=== PATIENT | male | born 1930 | race Two or more races ===

== ENCOUNTER 2019-07-28 17:58 | Inpatient (IN) | payer MEDICARE, OTHER ==
[~2019-07-28] VITALS: Ht 162.6 cm; Wt 67.8 kg
--- NOTE | 2019-07-28 18:01 | NUR ---
AT BEDSIDE FOR EVAL.
--- NOTE | 2019-07-28 18:06 | NUR ---
PT BIB [facility], GLF AT AN INTERSECTION,C/O LEFT HIP PAIN, PT IS AAOX2 LATVI[place] SPEAKING ONLY, NOT IN RESPIRATORY DISTRESS, HOOKED TO MONITOR, KEPT RESTED AND COMFORTABLE, WILL CONTINUE TO MONITOR.
--- NOTE | 2019-07-28 18:15 | NUR ---
IV LINE ESTABLISHED, BLOOD DRAWN AND SENT TO LAB.
--- NOTE | 2019-07-28 18:24 | NUR ---
PT IS WHEELED TO CT SCAN VIA [facility].
[2019-07-28 18:26] LABS: BASOPHILS # (AUTO) 0.1 /CMM (0.0-0.2); BASOPHILS % (AUTO) 0.4 % (0.0-2.0); EOSINOPHILS % (AUTO) 2.5 % (0.0-6.0); HEMATOCRIT 31 % (39-51); LYMPHOCYTES # (AUTO) 1.7 /CMM (0.8-4.8); LYMPHOCYTES % (AUTO) 13.2 % (20.0-44.0); MEAN CORPUSCULAR HGB CONC 33 g/dl (31.0-36.0); MEAN CORPUSCULAR VOLUME 96 fL (80-96); MONOCYTES # (AUTO) 0.8 /CMM (0.1-1.30); MONOCYTES % (AUTO) 6.4 % (2.0-12.0); NEUTROPHILS # (AUTO) 10.3 /CMM (1.8-8.9); NEUTROPHILS % (AUTO) 77.5 % (43.0-81.0); PLATELET COUNT (AUTO) 191 /CMM (150-450); RED BLOOD CELL COUNT(AUTO) 3.18 MIL/uL (4.5-6.0); WHITE BLOOD COUNT (AUTO) 13.2 K/uL (4.3-11.0)
[2019-07-28 18:40] LABS: CALCIUM, SERUM 8.3 mg/dL (8.5-10.1); CARBON DIOXIDE 30 mmol/L (21-32); CHLORIDE 106 mmol/L (98-107); CREATININE 1.1 mg/dL (0.6-1.3); GLUCOSE 122 mg/dL (74-106); SODIUM SERUM 141 mmol/L (136-145); UREA NITROGEN, BLOOD 16 mg/dL (7-18)
--- NOTE | 2019-07-28 19:10 | NUR ---
REPORT GIVEN TO LETHA WEBSTER FOR FARHAD.
--- NOTE | 2019-07-28 19:20 | NUR ---
PAGED ORTHO INDUSTRIAL WELDER DR CASTANEDA. DID NOT ANSWER WILL CALL BACK.
--- NOTE | 2019-07-28 19:25 | NUR ---
CALLED NURSING SUP FOR M/S BED.
--- NOTE | 2019-07-28 19:27 | NUR ---
CALLED [facility].
--- NOTE | 2019-07-28 19:50 | NUR ---
ADMISSION 89 y/o male admitted s/p GLF at an intersection, c/o pain when moving. Daughter Daily assist with translation, patient is [place] Citizen speaking. Skin body assessment done, left knee abrasion. Fall precaution maintained.
--- NOTE | 2019-07-28 19:51 | NUR ---
SECOND ATTEMPT FOR DR LEONEL RAMOS EMPLOYEE PLACEMENT SPECIALIST.
[2019-07-28] MEDS ORDERED: MAGNESIUM HYDROXIDE 30 ML UDC PO PRN (20:00)
[2019-07-28] MEDS ORDERED: MORPHINE SULFATE INJ 2 MG/ML DISP.SYRIN IV PRN (20:00)
[2019-07-28] MEDS ORDERED: MAG HYDROX/AL HYDROX/SIMETH 30 ML UDC PO PRN (20:00)
[2019-07-28] MEDS ORDERED: ONDANSETRON HCL/PF 4 MG/2 ML VIAL IVP PRN (20:00)
[2019-07-28] MEDS ORDERED: ACETAMINOPHEN 325 MG TABLET PO PRN (20:00)
[2019-07-28] MEDS ORDERED: Z GUARD REMEDY 2 OZ OINT TP PRN (20:00)
--- NOTE | 2019-07-28 20:18 | NUR ---
MS 203 GIVEN
--- NOTE | 2019-07-28 20:33 | NUR ---
REPORT GIVEN TO JOSE ROBERTO MONAE
[2019-07-28] MEDS ORDERED: ALPRAZOLAM 0.25 MG TABLET ONE (20:42)
[2019-07-28] MEDS ORDERED: ALPRAZOLAM 0.25 MG TABLET PO ONE (21:00)
[2019-07-28 21:18] VITALS: BP 159/72
[2019-07-28 21:22] VITALS: BP 159/72
--- NOTE | 2019-07-29 06:18 | NUR ---
END OF SHIFT REPORT Patient in bed, A/O x3 forgetful. Tolerating RA, denies shortness of breath. Limited movement in left hip due to pain, supported with pillows when repositioned. Left hip pain managed with PRN Tylenol. Afebrile overnight. Plan Ortho consult. Left knee abrasion, mepilex foam in place, wound care consult to follow. Fall precaution maintained.
--- NOTE | 2019-07-29 07:09 | NUR ---
MS RN OPENING NOTES RECEIVED PT AWAKE IN BED IN NO ACUTE SIGNS OF DISTRESS. A/O X3. UKRAINIAN SPEAKING, DENIES PAIN OR ANY DISCOMFORTS AT THIS TIME. ON ROOM AIR, BREATHING EVEN AND UNLABORED. IV SL ON RAC G#18 INTACT AND PATENT. FALL AND SAFETY MEASURES IN PLACE: BED IN LOWEST LOCKED POSITION WITH SIDE-RAILS UP X2. CALL LIGHT WITHIN REACH. WILL CONTINUE TO MONITOR PT ACCORDINGLY.
[2019-07-29 07:15] LABS: BASOPHILS % (AUTO) 0.7 % (0.0-2.0); EOSINOPHILS % (AUTO) 1.8 % (0.0-6.0); HEMATOCRIT 26 % (39-51); HEMOGLOBIN 8.7 g/dL (13.5-17.5); LYMPHOCYTES # (AUTO) 1.6 /CMM (0.8-4.8); LYMPHOCYTES % (AUTO) 23.1 % (20.0-44.0); MEAN CORPUSCULAR HGB CONC 34 g/dl (31.0-36.0); MEAN CORPUSCULAR VOLUME 95 fL (80-96); MONOCYTES # (AUTO) 0.6 /CMM (0.1-1.30); MONOCYTES % (AUTO) 8.9 % (2.0-12.0); NEUTROPHILS # (AUTO) 4.5 /CMM (1.8-8.9); NEUTROPHILS % (AUTO) 65.5 % (43.0-81.0); PLATELET COUNT (AUTO) 145 /CMM (150-450); RED BLOOD CELL COUNT(AUTO) 2.68 MIL/uL (4.5-6.0); WHITE BLOOD COUNT (AUTO) 6.8 K/uL (4.3-11.0)
[2019-07-29 08:00] VITALS: BP 158/63
[2019-07-29 08:21] LABS: CALCIUM, SERUM 7.8 mg/dL (8.5-10.1); MAGNESIUM 1.8 mg/dL (1.8-2.4); POTASSIUM 4.1 mmol/L (3.5-5.1)
[2019-07-29] MEDS: HYDROCODONE/APAP 5/325MG 1 EACH TABLET PO PRN ×2 (11:39→22:25)
--- NOTE | 2019-07-29 13:46 | NUR ---
RN NOTES LEFT MESSAGE TO DR YEUNG REGARDING ORTHO CONSULT FOR PT. HE REPLY BACK THAT HE WILL COME AND SEE PT TODAY.
--- NOTE | 2019-07-29 14:56 | NUR ---
RN NOTES PT SEEN AND EVALUATED BY DR YEUNG AND ORDERED NO IMMEDIATE SURGICAL INTERVENTION AT THIS TIME. HE ORDERED WEIGHT BEARING STATUS OF PARTIAL WEIGHT BEARING TO LLE. NO ACTIVE ABDUCTION OF LLE. WILL CONTINUE TO MONITOR PT.
[2019-07-29] MEDS ORDERED: MECL-159 PO (15:47)
[2019-07-29] MEDS ORDERED: SITA1TAB2 PO (15:47)
[2019-07-29] MEDS ORDERED: IBUP-1953 PO (15:47)
[2019-07-29] MEDS ORDERED: DILT120C51 PO (15:47)
[2019-07-29] MEDS ORDERED: CITA20TA16 PO (15:47)
[2019-07-29] MEDS ORDERED: TAMS-12 PO (15:47)
[2019-07-29 16:00] VITALS: BP 162/61
[2019-07-29] MEDS: AMLODIPINE BESYLATE 5 MG TABLET PO SCH (16:03)
--- NOTE | 2019-07-29 16:11 | NUR ---
RN NOTES PT NOTED WITH BP OF 162/[address] CORCORAN MADE AWARE WITH ORDER TO GIVE NORVASC 10MG NOW AND DAILY. WILL CONTINUE TO MONITOR.
--- NOTE | 2019-07-29 18:41 | NUR ---
RN NOTES URINE SPECIMEN FOR URINALYSIS COLLECTED. CALLED LAB AND SPOKE TO ROD TO PICK-UP SPECIMEN.
--- NOTE | 2019-07-29 18:43 | NUR ---
MS RN OPENING NOTES PT IN BED AWAKE AND LYING AT MODERATE HIGH BACKREST POSITION. A/O X3. WOLOF SPEAKING.LATEST BP TAKEN JUST NOW, 139/60MMHG. ON ROOM AIR, TOLERATING WELL WITH NO SOB NOTED THROUGHOUT THE DAY. IV SL ON RAC G#18 INTACT, PATENT AND FLUSHES WELL. ALL NEEDS AND CARE PROVIDED WELL. FALL AND SAFETY MEASURES KEPT IN PLACE: BED IN LOWEST LOCKED POSITION WITH SIDE-RAILS UP X2. CALL LIGHT WITHIN REACH. WILL ENDORSE TO CLEANING ASSOCIATE NURSE FOR FARHAD.
--- NOTE | 2019-07-29 19:10 | NUR ---
RN NOTES/ASSESSMENT: RECEIVED REPORT FROM RADHA MONAE. PT IN BED, SLEEPING, APPEARS CALM AND COMFORTABLE. MET WITH PT'S DAUGHTER, JOSEPH WHO WERE AT BED SIDE. RESPIRATIONS EVEN AND UNLABORED. PT SEEN BY GAMAL TODAY (ORTHO), NO SURGICAL INTERVENTION NEEDED, BUT WITH ORDERS FOR PARTIAL WEIGHT BEARING ONLY ON LLE, AND NO FURTHER MOVEMENT/ABDUCTION ON LEFT HIP TOP PREVENT FURTHER DISPLACEMENT. PT RAFFAELE/FARIBA? WILL SEE THE PT AT 0900AM TOMORROW. URINAL WITHIN REACH. IV ACCESS PATENT AND FLUSHING WELL, ON HL. SAFETY PRECAUTIONS FOR FALL INITIATED, CALL LIGHT IN REACH, WILL CONTINUE MONITORING PT.
[2019-07-29 19:56] LABS: APPEARANCE,URINE SL CLOUDY (CLEAR); BILIRUBIN,URINE NEGATIVE (NEGATIVE); BLOOD, URINE NEGATIVE Ery/uL (NEGATIVE); COLOR,URINE YELLOW (YELLOW); KETONES,URINE NEGATIVE (NEGATIVE); LEUKOCYTE ESTERASE ,URINE MODERATE (NEGATIVE); NITRITE, URINE NEGATIVE (NEGATIVE); PROTEIN,URINE NEGATIVE (NEGATIVE); UGLUCOSE NEGATIVE (NEGATIVE)
[2019-07-29 20:00] VITALS: BP 145/75
[2019-07-29 20:22] VITALS: BP 145/75
[2019-07-29 20:37] LABS: BACTERIA,URINE Few /HPF (None Seen); RBC,URINE 0-2 /HPF (0-2); SQUAMOUS EPITHELIAL CELL,UR Few /HPF (None Seen); WBC,URINE 21-50 /HPF (0-3)
--- NOTE | 2019-07-29 22:25 | NUR ---
RN NOTES/PRN NORCO: CONTACTED PT'S DAUGHTER, SPOKED WITH JOSEPH, PT POINTING ON HIS LEFT HIP AREA, PER TRANSLATION OF PT'S DAUGHTER, PT C/O PAIN ON HIP 02/24, PER DAUGHTER TO PLEASE GIVE PAIN MEDICATION TO MAKE HIS FATHER COMFORTABLE. PRN NORCO 5/325 MG TAB PO ADMINISTERED TO PT AT THIS TIME, WILL CONTINUE TO MONITOR AND REASSESS PT.
[2019-07-30] MEDS: HYDROCODONE/APAP 5/325MG 1 EACH TABLET PO PRN ×2 (03:34→16:29)
--- NOTE | 2019-07-30 03:35 | NUR ---
rn notes/prn norco: translated by pt's daughter jeremiah, pt pointing onto his left hip, rubbing site, appears to be not comfortable, per pt's daughter pt is in pain, requesting for pain medication, ps 01/25, prn norco 5/325 mg tab po administered to pt at this time.
[2019-07-30 06:22] LABS: BASOPHILS % (AUTO) 0.5 % (0.0-2.0); EOSINOPHILS % (AUTO) 3.7 % (0.0-6.0); HEMATOCRIT 24 % (39-51); HEMOGLOBIN 8.2 g/dL (13.5-17.5); LYMPHOCYTES # (AUTO) 1.2 /CMM (0.8-4.8); LYMPHOCYTES % (AUTO) 17.1 % (20.0-44.0); MEAN CORPUSCULAR HGB CONC 34 g/dl (31.0-36.0); MEAN CORPUSCULAR VOLUME 95 fL (80-96); MONOCYTES # (AUTO) 0.6 /CMM (0.1-1.30); MONOCYTES % (AUTO) 8.2 % (2.0-12.0); NEUTROPHILS # (AUTO) 5.1 /CMM (1.8-8.9); NEUTROPHILS % (AUTO) 70.5 % (43.0-81.0); PLATELET COUNT (AUTO) 143 /CMM (150-450); RED BLOOD CELL COUNT(AUTO) 2.53 MIL/uL (4.5-6.0); WHITE BLOOD COUNT (AUTO) 7.2 K/uL (4.3-11.0)
[2019-07-30 06:44] LABS: CALCIUM, SERUM 7.7 mg/dL (8.5-10.1); CREATININE 1.1 mg/dL (0.6-1.3); MAGNESIUM 1.8 mg/dL (1.8-2.4); PHOSPHORUS 3.4 mg/dL (2.5-4.9); POTASSIUM 4.3 mmol/L (3.5-5.1)
--- NOTE | 2019-07-30 06:44 | NUR ---
RN CLOSING NOTES: PT RESTING, APPEARS CALM AND COMFORTABLE. PRN NORCO ADMINISTERED FOR C/O LEFT HIP PAIN. IV ACCESS REMAINS PATENT AND FLUSHING WELL, ON HL. NO S/S OF IV INFILTRATION NOTED. FOR PT EVAL TODAY. VS REMAINS STABLE, NEEDS ATTENDED. URINAL WITHIN REACH. SAFETY PRECAUTIONS FOR FALL REMAINS ENGAGED, CALL LIGHT IN REACH, WILL ENDORSE TO DAY RN FOR CONTINUITY OF CARE.
--- NOTE | 2019-07-30 07:30 | NUR ---
MS2/RN OPENING NOTES RECEIVED PATIENT IN BED SLEEPING COMFORTABLY. EASILY AROUSABLE. NO PAIN OR ACUTE DISTRESS AT THIS TIME. RESPIRATION EVEN AND UNLABORED. SKIN IS DRY WARM TO TOUCH. PATIENT IS ALERT AND ORIENTED X3, [place] SPEAKING. ABLE TO MAKE NEEDS KNOWN. NOTED WITH IV ACCESS ON RAC. INTACT AND PATENT FLUSHING WELL. ALL NEEDS ANTICIPATED. CALL LIGHT WITHIN REACHED. BED LOCKED AND IN LOWEST POSITION. PLAN OF CARE DISCUSSED WITH PATIENT. WILL CONTINUE TO MONITOR CLOSELY.
[2019-07-30 08:00] VITALS: BP 127/57
[2019-07-30] MEDS: AMLODIPINE BESYLATE 5 MG TABLET PO SCH (08:10)
--- NOTE | 2019-07-30 09:51 | NUR ---
WOUND CARE CONSULT: PT PRESENTS WITH LEFT KNEE ABRASION, PRESENT ON ADMISSION. RECOMMENDATIONS MADE FOR SKIN PROTECTION AND WOUND CARE. DISCUSSED WITH NURSING STAFF. PT IS CONTINENT AT THIS TIME. WILL SEE PRN. RIOS IN AGREEMENT WITH PLAN OF CARE. Addendum: 07/30/19 at 0952 by OCHOA HENLEY WNDNU Amended: Links added.
[2019-07-30] MEDS: CEFTRIAXONE 1 G in IV D5W 50 ML IV SCH (14:00)
[2019-07-30 16:00] VITALS: BP 118/55
[2019-07-30] MEDS: TAMSULOSIN 0.4 MG CAP.SR.24H PO SCH (16:29)
[2019-07-30] MEDS: METFORMIN 500 MG TABLET PO SCH (16:29)
--- NOTE | 2019-07-30 18:51 | NUR ---
MS2/RN CLOSING NOTES PATIENT CONTINUES TO REMAIN IN STABLE CONDITION THROUGHOUT THE SHIFT. PROVIDED COMFORT AND SAFETY. ABLE TO MAKE NEEDS KNOWN. NOTED WITH IV ACCESS ON RFA #24G. INTACT AND PATENT FLUSHING WELL. LEFT A MESSAGE WITH MADISON YEUNG AND DR. CORCORAN REGARDING DAUGHTER WANTING TO TALK TO THEM REGARDING THE PATIENT. PATIENT WAS ALSO SEEN BY PT AND WAS ABLE TO WALK WITH A WALKER WITH ASSISTANCE. ALL NEEDS ANTICIPATED. CALL LIGHT WITHIN REACHED. BED LOCKED AND IN LOWEST POSITION. PLAN OF CARE DISCUSSED WITH PATIENT. WILL CONTINUE TO MONITOR CLOSELY. ENDORSED TO PM NURSE FOR FARHAD.
--- NOTE | 2019-07-30 19:36 | NUR ---
MS RN RECEIVE PT SITTING IN THE CHAIR. DAUGTHER AT BEDSIDE, A/O X 3, FORGETFUL AT TIMES. L HIP FX. PARTIAL WEIGHT BEARING LLE, STABLE AND NOT IN DISTRESS, SAFETY MEASURES AT ALL TIMES. WILL CONT TO MONITOR
[2019-07-30 20:00] VITALS: BP_SYST 100; BP_DIAS 44; BP_DIAS 94
--- NOTE | 2019-07-31 06:13 | NUR ---
MS RN PT ASLEEP AND EASILY AWAKEN, REMAINS COMFORTABLE AND NOT IN DISTRESS, RESPIRATIONS EVEN AND UNLABORED. MONITORED FOR PAIN NO C/O PAIN AT THIS TIME. MAINTAINS PARTIAL WT BEARING L HIP. NO ACTIVE L HIP ABDUCTION. NEEDS ATTENDED AND ANTICIPATED, KEPT CLEAN, DRY AND COMFORTABLE AT ALL TIMES. ASSISTED REPOSITION EVERY 2 HOURS. GOOD SKIN CARE PROVIDED. SAFETY MEASURES AT ALL TIMES. WILL ENDORSE TO NEXT SHIFT POC.
[2019-07-31 06:44] LABS: BASOPHILS % (AUTO) 0.6 % (0.0-2.0); EOSINOPHILS % (AUTO) 1.8 % (0.0-6.0); HEMATOCRIT 26 % (39-51); HEMOGLOBIN 8.9 g/dL (13.5-17.5); LYMPHOCYTES # (AUTO) 1.2 /CMM (0.8-4.8); LYMPHOCYTES % (AUTO) 15.6 % (20.0-44.0); MEAN CORPUSCULAR HGB CONC 34 g/dl (31.0-36.0); MEAN CORPUSCULAR VOLUME 96 fL (80-96); MONOCYTES # (AUTO) 0.8 /CMM (0.1-1.30); MONOCYTES % (AUTO) 9.7 % (2.0-12.0); NEUTROPHILS # (AUTO) 5.6 /CMM (1.8-8.9); NEUTROPHILS % (AUTO) 72.3 % (43.0-81.0); PLATELET COUNT (AUTO) 155 /CMM (150-450); RED BLOOD CELL COUNT(AUTO) 2.76 MIL/uL (4.5-6.0); WHITE BLOOD COUNT (AUTO) 7.7 K/uL (4.3-11.0)
[2019-07-31 06:50] LABS: CALCIUM, SERUM 8.2 mg/dL (8.5-10.1); CREATININE 1.1 mg/dL (0.6-1.3); MAGNESIUM 2.1 mg/dL (1.8-2.4); PHOSPHORUS 3.5 mg/dL (2.5-4.9); POTASSIUM 4.7 mmol/L (3.5-5.1)
[2019-07-31 07:52] VITALS: BP 139/49
[2019-07-31 08:00] VITALS: BP 139/49
[2019-07-31] MEDS: TAMSULOSIN 0.4 MG CAP.SR.24H PO SCH ×2 (08:13→16:38)
[2019-07-31] MEDS: METFORMIN 500 MG TABLET PO SCH ×2 (08:13→16:38)
[2019-07-31] MEDS: AMLODIPINE BESYLATE 5 MG TABLET PO SCH (08:14)
[2019-07-31] MEDS ORDERED: DILTIAZEM HCL CD 120 MG PO SCH (09:00)
[2019-07-31] MEDS ORDERED: CITALOPRAM HYDROBROMIDE 20 MG TABLET PO SCH (09:00)
[2019-07-31] MEDS ORDERED: LINAGLIPTIN 5 MG TABLET PO SCH (09:00)
[2019-07-31] MEDS ORDERED: SITAGLIPTIN PHOSPHATE 50 MG TABLET PO SCH (09:00)
[2019-07-31] MEDS ORDERED: CEFT1FRO2 IV (12:48)
[2019-07-31] MEDS ORDERED: HYDR-3972 PO (12:48)
[2019-07-31] MEDS ORDERED: POLY17PO4 PO (12:48)
[2019-07-31] MEDS ORDERED: METF-440 PO (12:48)
[2019-07-31] MEDS: CEFTRIAXONE 1 G in IV D5W 50 ML IV SCH (13:13)
[2019-07-31 16:00] VITALS: BP 122/76
--- NOTE | 2019-07-31 18:56 | NUR ---
MS RN END OF SHIFT SUMMARY Pt is a/o x2-3, afebrile. Respirations are even and unlabored, not in any acute distress noted. Pt denies any pain throughout shift, no c/o sob n/v. pupils are reactive to light. Abdomen is soft and nondistended, bowel sounds are present in all 4 quadrants upon auscultation. Denies any bladder discomfort, able to void using urinal with assistance. Pt sat up at the edge of the bed and transferred safely to chair with 2 staff assistance using gait belt with dtr at bedside. Pictures taken to skin, measurements done and charted in flowsheet. Explained discharge paperwork to son and pt with verbal and written understanding. Gave report to Anita at [facility] for report. All belongings accounted for. Called [facility], trip #[id number], eta 2 more hours. Son at bedside made aware. Safety measures are in place. Endorsed to next shift for FARHAD.
--- NOTE | 2019-07-31 19:15 | NUR ---
MS RN RECEIVE PT IN BED A/O X 3, STABLE AND NOT IN DISTRESS, SAFETY MEASURES AT ALL TIMES. WILL CONT TO MONITOR. FOR DISCHARGE TODAY
[2019-07-31 20:00] VITALS: BP 128/52
--- NOTE | 2019-07-31 20:28 | NUR ---
PATIENT DISCHARGE PATIENT LEFT AT [address]24 PHARMACY OPERATIONS MANAGER BY CATHERINE 2 EMT VIA CHRISTY, PATIENT STABLE, NO COMPLAIN OF PAIN, NO S/S OF DISTRESS, VS STABLE, SON AT BEDSIDE TO TRANSLATE HEALTH EDUCATION FOLLOW UP CARE PROVIDED, PT VERBALIZED UNDERSTANDING. CONTINUE HOME MEDICATION PRESCRIPTION AND EXIT CARE DOCUMENTS PROVIDED TO EMT PERSONNEL. NO I.V HEPLOCK. ALL BELONGINGS WAS TAKEN, SON AND PT APPRECIATIVE TO NURSES.
== END 2019-07-31 20:25 | DRG 542 ==
LOC: ER 18:02 → MEDSG2 20:28
PROVIDERS: ADMIT Internal Medicine; ATTEND Nurse Practitioner Acute Care
DX: M80.052A Age-related osteoporosis with current pathological fracture, left femur, initial encounter for fracture (principal); G93.41 Metabolic encephalopathy; N39.0 Urinary tract infection, site not specified; W18.30XA Fall on same level, unspecified, initial encounter; Y92.89 Other specified places as the place of occurrence of the external cause; N40.0 Benign prostatic hyperplasia without lower urinary tract symptoms; I10 Essential (primary) hypertension; F41.9 Anxiety disorder, unspecified; F32.9 Major depressive disorder, single episode, unspecified; F03.90 Unspecified dementia, unspecified severity, without behavioral disturbance, psychotic disturbance, mood disturbance, and anxiety; E11.9 Type 2 diabetes mellitus without complications
CPT/HCPCS: 36415; 70450-TC; 71045-TC; 72192-TC; 73552; 80048-TC; 81000-TC; 82962-TC; 83735-TC; 84100-TC; 84484-TC; 85025-TC; 87081-TC; 87086-TC; 97116-TC; 97530-TC; G0378; J0696; J7050; J7060